=== PATIENT | male | born 1945 | race Caucasian/White ===

== ENCOUNTER → 2016-05-09 | Outpatient (CLI) | payer MEDICARE, BC ==
[~2016-05-09] MED LIST: CENTRUM PO; CERTAGEN PO; EXCEDRIN PO; FAMOTIDINE PO; NATURAL VITA400 UNI2 PO; PHENERGAN25 M1 PO; PREVACID PO; PRILOSEC20 MG PO; VIT E PO; VITAMIN D 4001 UDTAB PO
--- NOTE | ~2016-05-09 | MR32 ---
[facility]. [facility] A Service of [facility] & [facility] RADIOLOGY TEXT RESULTS PATIENT: KARI TAVARES LOCATION: [facility] : 43 UNIT #: [id number] AGE: [address]: Rasta Turner II, MD SEX: M ORDER DR: [id number] [place] [id number] O MR#: [id number] Acc #: [id number] NAME: KARI TAVARES : 1945 SEX: M STUDY DATE/TIME: 05/09/2016 14:29 UNIT: [facility] ROOM: STUDY DESCRIPTION: MR Cervical Wo Contrast Attending Physician: Rasta Turner II., M.D. Referring Physician: Rasta Turner II., M.D. Ordering Physician: Rasta Turner II., M.D. Primary Care Physician: Beltran Isabel M.D. MRI CENTER REPORT This report is preliminary unless electronic signature is present. EXAM MRI of the cervical spine without contrast dated 05/09/2016. COMPARISON None HISTORY Increasing neck pain with popping and crepitus. Limited range of movement for 6 months. FINDINGS Multisequence, multiplanar imaging of the cervical spine was obtained without contrast. Disc osteophyte complexes are noted throughout the cervical spine, worse at C5 and C6. Cord is displaced posteriorly at these levels without obvious cord signal or caliber change. Imaged posterior fossa and craniovertebral junction are unremarkable. Pre and paravertebral soft tissues do not demonstrate any significant abnormality. C2-3: Concentric disc bulge with superimposed left cbsomgn-xg-xtjoc subarticular broad-based protrusion. It causes mild mass effect on the adjacent thecal sac without significant canal stenosis or cord compression. No neural foraminal narrowing. C3-4: Concentric disc bulge with superimposed mjrvd-nw-swdm central protrusion. Borderline size to mild canal stenosis with mild left neural foraminal encroachment. C4-5: Concentric disc bulge with superimposed central focal moderate protrusion with borderline size to mild canal stenosis. Severe left facet hypertrophic change is seen with moderate to severe left neural foraminal narrowing. C5-6: Disc osteophyte complex with superimposed eqlgs-tv-tsbv central [facility]S. [facility] A Service of [facility] & [facility] RADIOLOGY TEXT RESULTS PATIENT: KARI TAVARES LOCATION: [facility] : 43 UNIT #: [id number] AGE: [address]: Rasta Turner II, MD SEX: M ORDER DR: moderate protrusion with kwnx-uf-krwxpcif canal stenosis. Kyklgpvx-rg-qhtfmr left neural foraminal narrowing is seen with mild to moderate left and mild right facet hypertrophic change. C6-7: Disc osteophyte complex with superimposed mfhns-tl-woum central moderate protrusion/extrusion with ykhfmffw-vl-iddvtd canal stenosis. Mild bilateral facet hypertrophic changes are noted with moderate to severe bilateral neural foraminal narrowing. C7-T1: Mild disc bulge but otherwise unremarkable. IMPRESSION 1. Degenerative changes are noted at multiple levels, worst from C5-6 to C6-7 followed by C2-3 to C4-5 levels with significant central disc herniations causing adjacent varying degrees of canal stenosis. They slightly displace the cord posteriorly at some of the levels without obvious cord compression or cord signal change. 2. Varying degrees of neural foraminal narrowing and facet hypertrophic changes. Dictated by... Shae Latham M.D. THIS IS AN ELECTRONICALLY VERIFIED REPORT Shae Latham M.D. at 05/11/2016 3:02 PM CPR/tmw TD: 05/10/2016 14:56 JOB #: [id number] MRI CENTER REPORT
--- NOTE | ~2016-05-09 | MR122 ---
[facility] A Service of [facility] & [facility] RADIOLOGY TEXT RESULTS PATIENT: KARI TAVARES LOCATION: [facility] : 43 UNIT #: [id number] AGE: [address]: Rasta Turner II, MD SEX: M ORDER DR: [id number] [place] [id number] O MR#: [id number] Acc #: [id number] NAME: KARI TAVARES : 1945 SEX: M STUDY DATE/TIME: 05/09/2016 14:19 UNIT: [facility] ROOM: STUDY DESCRIPTION: MR MRA Head Wo Contrast Attending Physician: Rasta Turner II., M.D. Referring Physician: Rasta Turner II., M.D. Ordering Physician: Rasta Turner II., M.D. Primary Care Physician: Beltran Isabel M.D. MRI CENTER REPORT This report is preliminary unless electronic signature is present. EXAM MR angiogram of the head without contrast dated 05/09/2016. COMPARISON MRI brain dated 02/17/2016, MRA neck dated 05/09/2016. HISTORY Dizziness, occipital headaches for 6 months. Increasing neck pain, popping, and crepitus with limited range of movement. FINDINGS Source and 3-D reconstruction MIP images of the jamul of [place] was obtained without contrast. Bilateral intracranial internal carotid arteries, anterior cerebral arteries, and middle cerebral arteries demonstrate normal expected course, caliber, and flow. Well-defined anterior and right posterior communicating arteries are not seen. There is a prominent left PCom which feeds P2 and distal portions of the left [employer] with a very hypoplastic left P1 segment giving rise to the persistent appearance. Right posterior cerebral artery and visualized portions of bilateral superior cerebellar arteries are unremarkable. Mild irregularity is noted in the kps-pe-zhbgcz third of the basilar artery, likely relating to mild atherosclerotic plaque with minimal narrowing. There appears to be either a distal intervertebral communicating artery or sequestration of the basilar artery at the vertebrobasilar junction. 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 No aneurysm or AVM is seen. Vertebral arteries are unremarkable. IMPRESSION 1. No significant stenosis, aneurysm, or AVM. 2. Mild decrease in caliber is noted in the mid and distal third of the basilar artery which could be related to minimal narrowing due to atherosclerotic disease. No distal flow limitation. 3. 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 [facility] A Service of [facility] & [facility] RADIOLOGY TEXT RESULTS PATIENT: KARI TAVARES LOCATION: [facility] : 43 UNIT #: [id number] AGE: [address]: Rasta Turner II, MD SEX: M ORDER DR: or a possible tiny intervertebral artery connecting the two distal V4 segments just proximal to the vertebrobasilar junction. Congenital. Dictated by... Shae Latham M.D. THIS IS AN ELECTRONICALLY VERIFIED REPORT Shae Latham M.D. at 05/11/2016 3:02 PM CPR/tmw TD: 05/10/2016 14:27 JOB #: [id number] MRI CENTER REPORT
--- NOTE | ~2016-05-09 | MR134 ---
[facility] A Service of [facility] RADIOLOGY TEXT RESULTS PATIENT: KARI TAVARES LOCATION: [facility] : 43 UNIT #: [id number] AGE: [address]: Rasta Turner II, MD SEX: M ORDER DR: [id number] [place] [id number] O MR#: [id number] Acc #: [id number] NAME: KARI TAVARES : 1945 SEX: M STUDY DATE/TIME: 05/09/2016 14:00 UNIT: [facility] ROOM: STUDY DESCRIPTION: MR MRA Neck Wo Contrast Attending Physician: Rasta Turner II., M.D. Referring Physician: Rasta Turner II., M.D. Ordering Physician: Rasta Turner II., M.D. Primary Care Physician: Beltran Isabel M.D. MRI CENTER REPORT This report is preliminary unless electronic signature is present. EXAM MR angiogram of the neck without contrast dated 05/09/2016. COMPARISON MRA head dated 05/09/2016, MRI brain dated 02/17/2016. HISTORY Dizziness and occipital headaches for 6 months. Patient also has increasing neck pain with limited range of movement. FINDINGS Source and 3-D reconstruction MIP images of the neck arteries were obtained without contrast. Aortic arch is not included on the current study. Bilateral common, internal, and external carotid arteries demonstrate heterogeneous signal in bilateral ICA bulbs and ECA. Bilateral vertebral arteries demonstrate expected course, caliber, and signal. IMPRESSION 1. No hemodynamically flow-limiting significant stenosis in bilateral internal carotid artery bulbs per NASCET criteria. 2. Mild heterogeneity of signal is noted in bilateral common carotid artery bifurcations extending into bilateral ICA bulbs. It is probably related to flow turbulence and/or mild plaque. Dictated by... Shae Latham M.D. THIS IS AN ELECTRONICALLY VERIFIED REPORT Shae Latham M.D. at 05/11/2016 3:02 PM [facility] A Service of [facility] RADIOLOGY TEXT RESULTS PATIENT: KARI TAVARES [id number] 43 UNIT #: [id number] AGE: [address]: Rasta Turner II, MD SEX: M ORDER DR: GO/ned TD: 05/10/2016 14:26 JOB #: [id number] MRI CENTER REPORT
== END | disposition home or self-care (01) ==
LOC: SMRI 12:45
DX: R51 Headache (principal); M48.02 Spinal stenosis, cervical region; M50.21 Other cervical disc displacement, high cervical region; M50.221 Other cervical disc displacement at C4-C5 level; M47.812 Spondylosis without myelopathy or radiculopathy, cervical region
CPT/HCPCS: 70544; 70547; 72141

== ENCOUNTER → 2016-08-15 | Outpatient (CLI) | payer MEDICARE, BC ==
--- NOTE | ~2016-08-15 | TH ---
Unit #: [id number] #: [id number] Patient: KARI TAVARES [id number] [address] [address] [id number] O MR#: [id number] NAME: KARI TAVARES : 1945 SEX: M STUDY DATE/TIME: 08/15/2016 UNIT: [facility] ROOM: STUDY DESCRIPTION: Attending Physician: Ana Paula Macias M.D. Referring Physician: Ana Paula Macias M.D. Primary Care Physician: Beltran Isabel M.D. CARDIOLOGY REPORT EXAM Exercise Cardiolite stress test, nuclear portion. PROCEDURE Using technetium 99m labeled Cardiolite, rest and stress SPECT images were obtained. Multiple SPECT images were obtained in various views including horizontal and vertical long axis and short axis views of the left ventricle. Images were obtained by gated SPECT method. The patient was administered 11.68 mCi of Cardiolite at rest. Patient was administered 35.6 mCi of Cardiolite at peak exercise. Total exercise time is 5 minutes. On the stress images, there is normal perfusion noted. The rest images show mild decreased isotope activity in the anteroseptal wall consistent with soft tissue artifact. Comparing rest and stress images, there is no obvious stress-induced ischemia noted. The left ventricular ejection fraction is calculated to be 58%. There is no focal wall motion abnormality seen. CONCLUSION 1. No obvious stress-induced ischemia noted. 2. The left ventricular ejection fraction is calculated to be 58%. 3. There is no focal wall motion abnormality seen. 4. Normal Lexiscan Cardiolite stress test. 5. Technically somewhat limited study due to patient's body habitus. Clinical correlation is requested. Dictated by... Suzi Macdonald TD: 08/15/2016 11:36 JOB #: [id number] Unit #: [id number] #: [id number] Patient: KARI TAVARES CARDIOLOGY REPORT Page 1 of 1 X Ana Paula Macias MD <ELECTRONICALLY SIGNED> 09/16/16 1429 CARDIOLOGY REPORT
--- NOTE | ~2016-08-15 | ST ---
Unit #: [id number] #: [id number] Patient: KARI TAVARES [id number] [address] [address] [id number] O MR#: [id number] NAME: KARI TAVARES : 1945 SEX: M STUDY DATE/TIME: UNIT: [facility] ROOM: STUDY DESCRIPTION: Stress Test Attending Physician: Ana Paula Macias M.D. Referring Physician: Ana Paula Macias M.D. Primary Care Physician: Beltran Isabel M.D. CARDIOLOGY REPORT EXAM Exercise Cardiolite Stress Test DESCRIPTION Baseline EKG - normal sinus rhythm with ventricular rate 60 beats/minute, nondiagnostic Q waves in inferior lateral leads. The patient walked on the treadmill for 5 minutes utilizing Ryland protocol achieving a workload of 7.0 METs. 87% of maximum target heart rate achieved at 130 beats/minute with a maximum blood pressure response of 195/88 mmHg. That was in recovery phase. EKG during the test was equivocal to baseline. No acute ischemic changes. The patient had no complaints of chest pain, palpitations or dizziness, had increased shortness of breath and fatigueness which resolved in recovery phase. IMPRESSION 1. Functional class 3 with a workload of 10.0 METs. 2. Patient walked for 5 minutes utilizing Ryland protocol achieving 87% of maximum target heart rate at 130 beats/minute with a hypertensive blood pressure response of 195/88 mmHg. 3. It was noted at the end of recovery phase, patient's blood pressure was 174/83 mmHg. 4. The patient had no complaints of chest pain, palpitations or dizziness, had increased shortness of breath and fatigueness which resolved in recovery phase. Patient has a fairly poor exercise tolerance due to increased shortness of breath and fatigueness. 5. Cardiolite was injected at maximum target heart rate. Radionuclide test pending. Please correlate with nuclear images. Dictated by... Angelica Glaser A.P.R.N. for Suzi Macdonald/alvaro TD: 08/15/2016 08:50 Unit #: [id number] #: [id number] Patient: KARI TAVARES JOB #: [id number] CARDIOLOGY REPORT Page 1 of 1 X Angelica Glaser APRN CARDIOLOGY REPORT
== END | disposition home or self-care (01) ==
LOC: CNUC 06:21
DX: R07.9 Chest pain, unspecified (principal); R42 Dizziness and giddiness
CPT/HCPCS: 78452; 93017; A9500